=== PATIENT | female | born 1970 | race Caucasian/White ===

== ENCOUNTER 2017-10-10 07:15 | Emergency (ER) | payer MEDICAID ==
[~2017-10-10] VITALS: Ht 165.1 cm; Wt 63.6 kg
[2017-10-10 07:23] VITALS: BP 122/73
[2017-10-10] MEDS ORDERED: epiNEPHrine 1 mg/ml inj SQ STA (07:28)
[2017-10-10] MEDS ORDERED: IBUP-1986 PO (07:48)
[2017-10-10] MEDS ORDERED: ketorolac trometh inj. 60 MG/2 ML VIAL IM ONE (07:50)
[2017-10-10] MEDS ORDERED: acetaminophen 325mg tablet PO ONE (07:50)
== END 2017-10-10 08:02 | disposition home or self-care (01) ==
LOC: ER 07:16
DX: M79.621 Pain in right upper arm (principal); F17.200 Nicotine dependence, unspecified, uncomplicated; Z98.890 Other specified postprocedural states
CPT/HCPCS: 96372; 99283; J1885